=== PATIENT | male | born 1955 | race Hispanic/Latino ===

== ENCOUNTER 2023-05-18 10:15 | Observation (INO) | payer OTHER ==
[2023-05-18 10:52] LABS: Absolute Lymphocytes (CBC) 1.9 K/uL (0.7-4.9); Hematocrit 40.8 % (39.6-49.0); Lymphocytes % 21.5 % (15.3-44.8); MCV 93.4 fL (80-100); MPV 7.4 fL (7.6-11.3); Platelets 244 thou/uL (152-406); RBC Red Blood Cell Count 4.37 M/uL (4.33-5.43)
[2023-05-18 10:59] LABS: Protime INR 0.98
--- NOTE | 2023-05-18 11:10 | RAD REPORT ---
EXAM DESCRIPTION: CT - Ct Stroke Brain Wo Cont - 05/18/2023 10:46 am CLINICAL HISTORY: STROKE ALERT COMPARISON: CT-STONE PROTOCOL dated 02/09/2007; Head angio dated 05/18/2023; Neck Angio dated 3 TECHNIQUE: Noncontrast head CT images were obtained without IV contrast. Multiplanar reformats were generated and reviewed. All CT scans are performed using dose optimization technique as appropriate and may include automated exposure control or mA/KV adjustment according to patient size. FINDINGS: No intracranial hemorrhage, mass, or edema. Midline structures are unremarkable. Normal ventricular caliber for age. Hypodense areas in the bilateral superior cerebellar hemispheres, larger on the right. Minimal mass e ffect upon the fourth ventricle. Punctate focus of near CSF density in the right basal ganglia region , may represent a prominent perivascular space. Jay-white matter differentiation elsewhere is preser soraida, without evidence of acute infarct. No abnormal extra-axial fluid collections. Mastoid air cells and visualized portions of the paranasal sinuses are clear. No acute bony findings. IMPRESSION: Hypodense regions within the superior cerebellar hemispheres bilaterally larger on the r ight, suggestive of subacute ischemia. No evidence of intracranial hemorrhage or herniation. The findings were communicated to Akil Hernadez on 05/18/2023 at 10:44 hours.
--- NOTE | 2023-05-18 11:13 | EDPHYS ---
Physician Documentation [facility] Name: Reece Bender Age: 67 yrs Sex: Male : 1955 Arrival Date: 05/18/2023 Time: 10:15 Bed 15 Private MD: ED Physician Kelley Cat HPI: 05/18 11:05 This 67 yrs old Male presents to ER via Ambulatory with complaints of High sp3 Blood Pressure. 11:05 67-year-old male with history of hypertension and diabetes now presents to the ED with sp3 high blood pressure and slurred speech since yesterday evening. Patient went to sleep and awoke with the same slurred speech also has right upper extremity tingling and numbness that is now resolved. Patient slurred speech symptoms are still occurring. No other symptoms are present. He denies headache, neck pain, trauma, chest pain, shortness of breath, palpitations or irregular heartbeat, rash, abdominal pain, vomiting, diarrhea, substance use, travel history, known sick contacts, fever, URI symptoms, syncope, near syncope, prior CVA, or any other signs or symptoms on ROS at this time.. Historical: - Allergies: 10:25 No Known Allergies; mb9 - Home Meds: 10:25 atorvastatin 20 mg oral tablet [Active]; losartan 50 mg oral tablet [Active]; mb9 - PMHx: 10:25 Hypertensive disorder; Diabetes mellitus; mb9 - PSHx: 10:25 None; mb9 - Immunization history:: Adult Immunizations up to date. - Social history:: Smoking status: Patient denies any tobacco usage or history of. ROS: 11:07 Constitutional: Negative for fever, chills, and weight loss, Eyes: Negative for injury, sp3 pain, redness, and discharge, ENT: Negative for injury, pain, and discharge, Neck: Negative for injury, pain, and swelling, Cardiovascular: Negative for chest pain, palpitations, and edema, Respiratory: Negative for shortness of breath, cough, wheezing, and pleuritic chest pain, Abdomen/GI: Negative for abdominal pain, nausea, vomiting, diarrhea, and constipation, Back: Negative for injury and pain, MS/Extremity: Negative for injury and deformity, Skin: Negative for injury, rash, and discoloration, Psych: Negative for depression, anxiety, suicide ideation, homicidal ideation, and hallucinations, Allergy/Immunology: Negative for hives, rash, and allergies, Endocrine: Negative for neck swelling, polydipsia, polyuria, polyphagia, and marked weight changes, Hematologic/Lymphatic: Negative for swollen nodes, abnormal bleeding, and unusual bruising, 11:07 All other systems are negative, Exam: 11:07 Constitutional: This is a well developed, well nourished patient who is awake, alert, sp3 and in no acute distress. Head/Face: Normocephalic, atraumatic. Eyes: Pupils equal round and reactive to light, extra-ocular motions intact. Lids and lashes normal. Conjunctiva and sclera are non-icteric and not injected. Cornea within normal limits. Periorbital areas with no swelling, redness, or edema. ENT: Nares patent. No nasal discharge, no septal abnormalities noted. External auditory canals are clear. Oropharynx with no redness, swelling, or masses, exudates, or evidence of obstruction, uvula midline. Mucous membranes moist. Neck: Trachea midline, no thyromegaly or masses palpated, and no cervical lymphadenopathy. Supple, full range of motion without nuchal rigidity, or vertebral point tenderness. No Meningismus. Chest/axilla: Normal chest wall appearance and motion. Nontender with no deformity. No lesions are appreciated. Cardiovascular: Regular rate and rhythm with a normal S1 and S2. No gallops, murmurs, or rubs. Normal PMI, no JVD. No pulse deficits. Respiratory: Lungs have equal breath sounds bilaterally, clear to auscultation and percussion. No rales, rhonchi or wheezes noted. No increased work of breathing, no retractions or nasal flaring. Abdomen/GI: Soft, non-tender, with normal bowel sounds. No distension or tympany. No guarding or rebound. No evidence of tenderness throughout. Back: No spinal tenderness. No costovertebral tenderness. Full range of motion. Skin: Warm, dry with normal turgor. Normal color with no rashes, no lesions, and no evidence of cellulitis. MS/ Extremity: Pulses equal, no cyanosis. Neurovascular intact. Full, normal range of motion. Psych: Awake, alert, with orientation to person, place and time. Behavior, mood, and affect are within normal limits. 11:07 Neuro: NIH stroke scale is a 3. Patient still has slurred speech but no other deficits noted., Vital Signs: 10:22 BP 101 / 68; Pulse 63; Resp 18; Temp 98; Pulse Ox 99% on R/A; Weight 83.91 kg; Height 5 mb9 ft. 8 in. ; Pain 10/10; 11:23 BP 102 / 64; Pulse 60; Resp 12; Pulse Ox 97% on R/A; nj1 12:16 BP 110 / 62; Pulse 55; Resp 18; Pulse Ox 98% on R/A; Pain 6/10; nj1 13:15 BP 125 / 74; Pulse 51; Resp 13; Pulse Ox 100% on R/A; Pain 6/10; nj1 14:19 BP 116 / 73; Pulse 61; Resp 16; Pulse Ox 100% on R/A; nj1 15:10 BP 126 / 68; Pulse 55; Resp 14; Pulse Ox 98% on R/A; Pain 2/10; nj1 16:00 BP 116 / 73; Pulse 53; Resp 13; Pulse Ox 98% on R/A; nj1 10:22 Body Mass Index 28.13 (83.91 kg, 172.72 cm) mb9 10:22 Pain Scale: Adult mb9 12:16 Pain Scale: Adult nj1 13:15 Pain Scale: Adult nj1 15:10 Pain Scale: Adult nj1 NIH Stroke Scale Scores: 10:50 NIHSS Score: 3 nj1 MDM: 10:32 Patient medically screened. rt 11:08 Data reviewed: vital signs, nurses notes, lab test result(s), EKG, radiologic studies. sp3 ED course: 67-year-old male with likely CVA. 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 CTA results show no significant obstruction. MRI is pending. Patient is clearly out of the window for acute intervention. Will admit to the hospital, start ASA and consult neurology.. 13:05 ED course: A call was [facility] to [facility] interventional team to go through sp3 the CTA results of the left-sided moderate to severe stenosis of the vertebral artery. They recommended medical therapy only given no flow defects and the right side being intact. This was noted and communicated to both our neurology/inpatient team here as well as the family.. 05/18 10:32 Order name: Basic Metabolic Panel; Complete Time: 11:17 rt 05/18 10:32 Order name: CBC with Diff; Complete Time: 11:05 rt 05/18 10:32 Order name: Hepatic Function; Complete Time: 11:17 rt 05/18 10:32 Order name: High Sensitivity Troponin; Complete Time: 11:17 rt 05/18 10:32 Order name: Magnesium; Complete Time: 11:17 rt 05/18 10:32 Order name: Protime (+inr); Complete Time: 11:05 rt 05/18 10:32 Order name: Ptt, Activated; Complete Time: 11:05 rt 05/18 10:59 Order name: CREATININE WHOLE BLOOD; Complete Time: 11:05 EDMS 05/18 10:32 Order name: CT Head Angio; Complete Time: 11:37 rt 05/18 10:32 Order name: CT Neck Angio; Complete Time: 11:17 rt 05/18 10:32 Order name: CT Stroke Brain w/o Contrast; Complete Time: 11:12 rt 05/18 10:32 Order name: Stroke CXR 1 View; Complete Time: 11:37 rt 05/18 11:01 Order name: MRI Stroke Protocol bd 05/18 14:22 Order name: MRI EDMS 05/18 10:32 Order name: EKG; Complete Time: 10:33 rt 05/18 10:32 Order name: Accucheck; Complete Time: 10:40 rt 05/18 10:32 Order name: Cardiac monitoring; Complete Time: 11:20 rt 05/18 10:32 Order name: EKG - Nurse/Tech; Complete Time: 11:20 rt 05/18 10:32 Order name: IV Saline Lock; Complete Time: 11:09 rt 05/18 10:32 Order name: Labs collected and sent; Complete Time: 11:09 rt 05/18 10:32 Order name: NPO; Complete Time: 11:20 rt 05/18 10:32 Order name: O2 Per Protocol; Complete Time: 11:20 rt 05/18 10:32 Order name: O2 Sat Monitoring; Complete Time: 11:20 rt 05/18 10:32 Order name: Stroke Swallow Screen; Complete Time: 11:20 rt Administered Medications: 11:19 Not Given (Already given at clinic prior to ED arrivall): mg PO once nj1 Disposition Summary: 05/18/23 11:12 Hospitalization Ordered Notes: Hospitalization Status: Inpatient Admission sp3 Provider: Valentino Pruett sp3 Location: Telemetry/MedSurg (Inpatient) sp3 Condition: Stable sp3 Problem: an acute exacerbation sp3 Symptoms: have worsened sp3 Bed/Room Type: Standard sp3 Room Assignment: 414(05/18/23 16:20) bd Diagnosis - CVA sp3 Forms: - Medication Reconciliation Form sp3 - SBAR form sp3 - Leadership Thank You Letter sp3 NIH Stroke Scale - NIH Stroke Score Date: 05/18/2023 Time: 10:50 Total Score = 3 10. Dysarthria (speech clarity - read or repeat words) - 1(Mild to Moderate) 11. Extinction and Inattention (visual/tactile/auditory/spatial/personal) - 0(No abnormality) 1a. Level of Consciousness (LOC) - 0(Alert) 1b. Level of Consciousness (LOC) (Month \T\ Age) - 1(One) 1c. LOC Commands (Open \T\ Closes Eyes/Cosmetic Sales) - 0(Both) 2. Best Gaze (Lateral Gaze Paresis) - 0(Normal) 3. Visual Field Loss - 0(No visual loss) 4. Facial Palsy - 0(Normal) 5a. Left Arm: Motor (10-second hold) - 0(No drift) 5b. Right Arm: Motor (10-second hold) - 0(No drift) 6a. Left Leg: Motor (5-second hold - always test supine) - 0(No drift) 6b. Right Leg: Motor (5-second hold - always test supine) - 0(No drift) 7. Limb Ataxia (finger/nose \T\ heel/plata - test with eyes open) - 0(Absent) 8. Sensory Loss (pinprick arms/legs/face) - 0(Normal) 9. Best Language: Aphasia (description/naming/reading) - 1(Mild to moderate aphasia) Initials: nj1 Signatures: Dispatcher [employer] EDMS April Ardon Lee, RUG CUTTER HELPER-C RUG CUTTER HELPER-Cla1 Kelley Cat MD MD sp3 Zaina Mallory RN RN mb9 Akil Hernadez MD MD rt Micaela Chávez RN nj1 Corrections: (The following items were deleted from the chart) 15:47 11:12 sp3 bd 16:20 15:47 416 bd bd
--- NOTE | 2023-05-18 11:13 | ER ---
Nurse's Notes [facility] Name: Reece Bender Age: 67 yrs Sex: Male : 1955 Arrival Date: 05/18/2023 Time: 10:15 Bed 15 Private MD: Diagnosis: CVA Presentation: 05/18 10:22 Chief complaint: Patient's son or daughter states: "He sent him home from work for mb9 being dizzy, having headache, and slurring his words. He said the slurring of words started last night at 2100. He said his right arm was numb at 0700am this morning". Coronavirus screen: At this time, the client does not indicate any symptoms associated with coronavirus-19. Ebola Screen: No symptoms or risks identified at this time. Initial Sepsis Screen: Does the patient meet any 2 criteria? No. Patient's initial sepsis screen is negative. Does the patient have a suspected source of infection? No. Patient's initial sepsis screen is negative. Risk Assessment: Do you want to hurt yourself or someone else? Patient reports no desire to harm self or others. Onset of symptoms was May 18, 2023. 10:22 Method Of Arrival: Ambulatory mb9 10:22 Acuity: NGUYEN 2 mb9 Triage Assessment: 10:26 General: Appears in no apparent distress. Behavior is calm, cooperative. Neuro: Reports mb9 headache in left frontal area. Neuro: Reports dizziness. Cardiovascular: Denies chest pain. Respiratory: Airway is patent Respiratory effort is even, unlabored, Respiratory pattern is regular, symmetrical. Historical: - Allergies: 10:25 No Known Allergies; mb9 - Home Meds: 10:25 atorvastatin 20 mg oral tablet [Active]; losartan 50 mg oral tablet [Active]; mb9 - PMHx: 10:25 Hypertensive disorder; Diabetes mellitus; mb9 - PSHx: 10:25 None; mb9 - Immunization history:: Adult Immunizations up to date. - Social history:: Smoking status: Patient denies any tobacco usage or history of. Screenin:00 [place] Swallow Protocol Exclusion Criteria: Unable to remain alert for testing: No NPO nj1 for medical/surgical reason by provider order No Head-of-bed restricted <30 degrees Tracheostomy tube present No No thin liquids due to preexisting dysphagia/baseline modified diet thickened liquids No Exclusion Criteria Result: Proceed Brief Cognitive Screen What is your name? Normal, Where are you right now? Normal, What year is it? Normal. Oral Mechanism Examination Facial Symmetry: Normal, Motion: Normal, Lip Closure: Normal, Oral Mechanism Result: Normal. 3 oz Water Swallow Challenge: Pt able to drink all water without stopping, coughing, choking or throat clearing: Yes Result: PASS. 11:00 [facility] ED Fall Risk Assessment (Adult) Score/Fall Risk Level 0 - 2 = Low Risk nj1 Oriented to surroundings, Maintained a safe environment, Hourly rounding (assess needs \\T\\ fall precautionary measures) done. Abuse screen: Denies threats or abuse. Denies injuries from another. Nutritional screening: No deficits noted. Tuberculosis screening: No symptoms or risk factors identified. Assessment: 10:28 Reassessment: pt taken to CT accompanied by nurse. mb9 10:50 General: Appears in no apparent distress. comfortable, Behavior is calm, cooperative, nj1 appropriate for age. 10:50 Pain: Pain: Complains of pain in Head Pain currently is 6 out of 10 on a pain scale. nj1 Quality of pain is described as aching. Neuro: Level of Consciousness is awake, alert, obeys commands, Oriented to person, place, time, situation, Supervisor Finish End are equal bilaterally Moves all extremities. Gait is unable to assess. Speech is slurred, Facial symmetry appears normal, Pupils are PERRLA, Intact. Cardiovascular: Patient's skin is warm and dry. Respiratory: Airway is patent Respiratory effort is even, unlabored. GI: 11:00 Reassessment: Upon clarification with family, patient went to bed last night with a nj1 headache. When he got to work this morning, normally gets there at 5:50am, they noticed slurred speech and inability to write, unsure of onset. 12:13 Reassessment: No changes from previously documented assessment. nj1 13:10 Reassessment: Patient appears in no apparent distress at this time. No changes from nj1 previously documented assessment. Patient and/or family updated on plan of care and expected duration. Pain level reassessed. Patient is alert, oriented x 3, equal unlabored respirations, skin warm/dry/pink. 13:10 Neuro: Speech is slurred. nj1 14:20 Reassessment: Patient appears in no apparent distress at this time. No changes from nj1 previously documented assessment. Patient and/or family updated on plan of care and expected duration. Pain level reassessed. Patient is alert, oriented x 3, equal unlabored respirations, skin warm/dry/pink. Neuro: Speech is slurred. 15:10 Reassessment: Patient appears in no apparent distress at this time. No changes from [facility] previously documented assessment. Patient and/or family updated on plan of care and expected duration. Pain level reassessed. Patient is alert, oriented x 3, equal unlabored respirations, skin warm/dry/pink. 15:10 Neuro: Speech is slurred. nj1 15:55 Reassessment: Unsuccessful attempt to call report. Nurse will call back for report. dc1 16:00 Reassessment: Patient appears in no apparent distress at this time. No changes from [facility] previously documented assessment. Patient and/or family updated on plan of care and expected duration. Pain level reassessed. Patient is alert, oriented x 3, equal unlabored respirations, skin warm/dry/pink. Vital Signs: 10:22 BP 101 / 68; Pulse 63; Resp 18; Temp 98; Pulse Ox 99% on R/A; Weight 83.91 kg; Height 5 mb9 ft. 8 in. ; Pain 10/10; 11:23 BP 102 / 64; Pulse 60; Resp 12; Pulse Ox 97% on R/A; nj1 12:16 BP 110 / 62; Pulse 55; Resp 18; Pulse Ox 98% on R/A; Pain 6/10; nj1 13:15 BP 125 / 74; Pulse 51; Resp 13; Pulse Ox 100% on R/A; Pain 6/10; nj1 14:19 BP 116 / 73; Pulse 61; Resp 16; Pulse Ox 100% on R/A; nj1 15:10 BP 126 / 68; Pulse 55; Resp 14; Pulse Ox 98% on R/A; Pain 2/10; nj1 16:00 BP 116 / 73; Pulse 53; Resp 13; Pulse Ox 98% on R/A; nj1 10:22 Body Mass Index 28.13 (83.91 kg, 172.72 cm) mb9 10:22 Pain Scale: Adult mb9 12:16 Pain Scale: Adult nj1 13:15 Pain Scale: Adult nj1 15:10 Pain Scale: Adult nj1 NIH Stroke Scale Scores: 10:50 NIHSS Score: 3 nj1 ED Course: 10:19 Patient arrived in ED. mg5 10:22 Kelley Cat MD is Attending Physician. sp3 10:24 Triage completed. mb9 10:26 Arm band placed on. mb9 10:39 Inserted saline lock: 22 gauge in left antecubital area, using aseptic technique. Blood mb9 collected. 10:40 Micaela Chávez, RN is Primary Nurse. nj1 10:40 Basic Metabolic Panel Sent. mb9 10:40 CBC with Diff Sent. mb9 10:40 Hepatic Function Sent. mb9 10:41 High Sensitivity Troponin Sent. mb9 10:41 Magnesium Sent. mb9 10:41 Protime (+inr) Sent. mb9 10:41 Ptt, Activated Sent. mb9 10:47 CT Head Angio In Process Unspecified. EDMS 10:48 CT Neck Angio In Process Unspecified. EDMS 10:48 CT Stroke Brain w/o Contrast In Process Unspecified. EDMS 10:50 Patient has correct armband on for positive identification. Bed in low position. Call nj1 light in reach. Adult w/ patient. 10:50 Provided Education on: call light, fall precautions. nj1 11:11 Valentino Pruett MD is Hospitalizing Provider. sp3 11:14 Stroke CXR 1 View In Process Unspecified. EDMS 13:02 initiated transfer to [facility]. bd 13:05 transfer cancelled by provider, pt will be staying at [facility]. bd 16:11 No provider procedures requiring assistance completed. Patient admitted, IV remains in nj1 place. Administered Medications: 11:19 Not Given (Already given at clinic prior to ED arrivall): [id number] mg PO once nj1 Medication: 16:12 VIS not applicable for this client. nj1 Outcome: 11:12 Decision to Hospitalize by Provider. sp3 16:03 Admitted to Tele accompanied by tech, family with patient, via stretcher, room 416, nj Report called to Xochilt VEE 16:03 Condition: stable 16:03 Instructed on the need for admit, 16:35 Patient left the ED. nj NIH Stroke Scale - NIH Stroke Score Date: 05/18/2023 Time: 10:50 Total Score = 3 10. Dysarthria (speech clarity - read or repeat words) - 1(Mild to Moderate) 11. Extinction and Inattention (visual/tactile/auditory/spatial/personal) - 0(No abnormality) 1a. Level of Consciousness (LOC) - 0(Alert) 1b. Level of Consciousness (LOC) (Month \\T\\ Age) - 1(One) 1c. LOC Commands (Open \\T\\ Closes Eyes/Reimbursement Spec) - 0(Both) 2. Best Gaze (Lateral Gaze Paresis) - 0(Normal) 3. Visual Field Loss - 0(No visual loss) 4. Facial Palsy - 0(Normal) 5a. Left Arm: Motor (10-second hold) - 0(No drift) 5b. Right Arm: Motor (10-second hold) - 0(No drift) 6a. Left Leg: Motor (5-second hold - always test supine) - 0(No drift) 6b. Right Leg: Motor (5-second hold - always test supine) - 0(No drift) 7. Limb Ataxia (finger/nose \\T\\ heel/plata - test with eyes open) - 0(Absent) 8. Sensory Loss (pinprick arms/legs/face) - 0(Normal) 9. Best Language: Aphasia (description/naming/reading) - 1(Mild to moderate aphasia) Initials: [facility] Signatures: Dispatcher [employer] EDMS April Ardon Setul, MD MD sp3 Zaina Mallory RN RN [facility] Micaela Chávez RN RN [facility] Maxine Antonio 5 Corrections: (The following items were deleted from the chart) 10:28 10:22 Chief complaint: Patient's son or daughter states: "He sent him home from [facility] work for being dizzy, having headache, and slurring his words. He said the slurring of words started last night at 2100." [facility] 10:34 10:22 Acuity: NGUYEN 3 [place] [address] 12:15 10:50 Pain: [place] [address] 15:57 15:10 BP 126 / 68; Pulse 55bpm; Resp 14bpm; Pulse Ox 98% RA; [place] [address] 16:10 14:19 Pulse 61bpm; Resp 16bpm; Pulse Ox 100% RA; [place] [address]
[2023-05-18 11:14] LABS: Albumin 3.4 g/dL (3.4-5.0); Bilirubin Direct 0.2 mg/dL (0-0.2); Bilirubin Indirect, Calculated 0.3 mg/dL (0.2-0.8); Bilirubin Total 0.5 mg/dL (0.2-1.0); Magnesium 1.4 mg/dL (1.6-2.4); Potassium 4.1 mEq/L (3.5-5.1); Protein, Total 6.8 g/dL (6.4-8.2)
--- NOTE | 2023-05-18 11:14 | RAD REPORT ---
EXAM DESCRIPTION: CT - Neck Angio - 05/18/2023 10:46 am CLINICAL HISTORY: cva COMPARISON: Head angio dated 05/18/2023; Ct Stroke Brain Wo Cont dated 05/18/2023 TECHNIQUE: Axial CT angiography images of the head was performed with multiplanar and maximum intens ity projection reconstructions. Images performed following intravenous administration of 100mL Isovue 370. All CT scans are performed using dose optimization technique as appropriate and may include automated exposure control or mA/KV adjustment according to patient size. Quantification of carotid stenosis, if any, is performed according to NASCET criteria. FINDINGS: A left aortic arch is identified with normal three vessel configuration of the great vesse ls. Dense venous contrast limits evaluation of the subclavian vein and origin of the left vertebral a rtery, although suspected moderate to severe stenosis is noted at the origin of the left vertebral ar eugenio, allowing for this limitation No significant flow abnormality is seen of the common carotid bilaterally. No significant stenosis is identified involving the cervical segments of both internal carotid arteri es. Normal flow is seen within the remainder of both vertebral arteries. Right vertebral artery is domina nt. IMPRESSION: Suspected moderate to severe stenosis at the origin of the left vertebral artery, althou gh dense venous contrast results in artifact which somewhat limits evaluation at that level. No other significant flow abnormality of the neck vessels is identified. CAROTID STENOSIS REFERENCE USING NASCET CRITERIA: % ICA stenosis = (1 - narrowest ICA diameter/diameter of distal cervical ICA) x 100. Mild - <50% stenosis. Moderate - 50-69% stenosis. Severe - 70-94% stenosis. Near occlusion - 95-99% stenosis. Occluded - 100% stenosis.
--- NOTE | 2023-05-18 11:16 | RAD REPORT ---
EXAM DESCRIPTION: CT - Head angio - 05/18/2023 10:46 am CLINICAL HISTORY: STROKE ALERT COMPARISON: Ct Stroke Brain Wo Cont dated 05/18/2023; Neck Angio dated 05/18/2023 TECHNIQUE: Axial CT angiography images of the head was performed with multiplanar and maximum intens ity projection reconstructions. Images performed following intravenous administration of 100mL Isovue 370. All CT scans are performed using dose optimization technique as appropriate and may include automated exposure control or mA/KV adjustment according to patient size. FINDINGS: No evidence of large vessel occlusion. No evidence of aneurysm or dissection flap is detec bayron. No flow-limiting stenosis or vascular malformation identified. Small calcific focus in the extr a-axial space adjacent to the left posterior clinoid may represent a small meningioma without signifi cant mass effect. Antegrade flow is seen in the vertebral arteries. The right vertebral artery is dominant. Mild multif ocal irregularity along the distal left vertebral artery. Persistent origin configuration of t he right posterior [id number] vessels on the right. The visualized dural venous sinuses are grossly patent. IMPRESSION: No evidence of large vessel occlusion or flow-limiting stenosis. Mild multifocal luminal irregularity of the distal non dominant left vertebral artery.
--- OUTSIDE RECORDS SUMMARY | 2023-05-18 11:19 | XMS REPORT | Continuity of Care Document ---
:1955 Author Organization [facility] t Address [address] [place] [address] [address] [place] [address] Care Team Providers Name Role Phone PCP, PATIENT DOES NOT HAVE A Primary Care Physician UnavailEUN Acosta Attending Clinician Unavailable Carroll Weems Attending Clinician Eun Meredith MD Attending Clinician CARROLL CARDENAS Admitting Clinician Unavailable Payers Payer Name Policy Type Policy Number Effective Date Expiration Date S Yapmo [id number] 2021 NON-CONTRACT 00:00:00 GENERIC Problems Condition Condition Condition Status Onset Resolution Last Treating Co mments Source Name Details Category Date Date Treatment Clinician Date SBO (small SBO (small Disease Active U nivers bowel bowel 5-13 [place] n[place] 00 Medical Branch Encounter Encounter Disease Active Uni vers for for 5-12 ity of nasogastri [place] c ([place] 00 Medical tube tube Branch placement placement Allergies, Adverse Reactions, Alerts Allergy Allergy Status Severity Reaction(s) Onset Inactive Treating Comm ents Source Name Type Date Date Clinician NO KNOWN Drug Active Univers ALLERGIE Class ity of S [place] [facility] Social History Social Habit Start Date Stop Date Quantity Comments Source Exposure to 2021-09-23 2021-10-03 Not sure [facility] SARS-CoV-2 (event) 00:00:00 12:49:00 Medica l Branch Sex Ass[birth year] At [birth year] [facility] 00:00:00 00:00:00 Medical Branch Smoking Status Start Date Stop Date Source Never smoker [facility] Medications Ordered Filled Start Stop Current Ordering Indication Dosage Frequency Signature Comments Components Source Medication Medication Date Date Medication? Clinician (SIG) Name Name TAKE 1 TO 2 2021-06 No TABLETS BY 1-15 MOUTH EVERY 00:00: 6 HOURS 00 NEEDED FOR NAUSEA Dose 2021-0 No Unknown 4-25 00:00: 00 Dose 2021-0 No Unknown 4-25 00:00: 00 Dose 2021-0 No Unknown 4-25 00:00: 00 Dose 2021-0 No Unknown 4-25 00:00: 00 Dose 2021-0 No Unknown 4-25 00:00: 00 Dose 2021-0 No Unknown 4-25 00:00: 00 Dose 2021-0 No Unknown 4-25 00:00: 00 Dose 2021-0 No Unknown 4-25 00:00: 00 Dose 2021-0 No Unknown 4-25 00:00: 00 Dose 2021-0 No Unknown 4-25 00:00: 00 Dose 2021-0 No Unknown 4-25 00:00: 00 Dose 2021-0 No Unknown 4-25 00:00: 00 cloNIDine 2021-0 2021- No .2mg 0.2 mg, Univ ers (CATAPRES) 10-03 Oral, ity of tablet 0.2 21:30: 20:29 ONCE, 1 [place] mg 00 :00 dose, On Medical Fri Branch 10/03/21 at 1630, STAT ondansetron 0 2021- No 8mg 8 mg, Slow Univers (ZOFRAN 10-03 IV Push, ity of (PF)) 20:00: 19:34 ONCE, 1 [place] injection 8 00 :00 dose, On Medi elin mg Fri Branch 10/03/21 at 1500, MADDIE morpHINE 0 2021- No 4mg 4 mg, Slow Un ori injection 4 10-03 IV Push, ity of mg 20:00: 19:35 ONCE, 1 [place] 00 :00 dose, On Medical Fri Branch 10/03/21 at 1500, STAT aspirin 2-0 2021- No 325mg 325 mg, Unive rs tablet 325 10-03 Oral, ity of mg 19:30: 18:30 ONCE, 1 [place] 00 :00 dose, On Medical Fri Branch 10/03/21 at 1430, STAT Dose 2021-0 No Unknown 4- 00:00: 00 Dose 2-0 No Unknown 4- 00:00: 00 Dose 2-0 No Unknown 4- 00:00: 00 Dose 2-0 No Unknown 4- 00:00: 00 Dose 2-0 No Unknown 4-22 00:00: 00 Dose 2021-0 No Unknown 4-22 00:00: 00 Dose 2021-0 No Unknown 4-22 00:00: 00 Dose 2-0 No Unknown 4-22 00:00: 00 Dose 2-0 No Unknown 4-22 00:00: 00 Dose 2-0 No Unknown 4-22 00:00: 00 Dose 2-0 No Unknown 4-22 00:00: 00 Dose 2-0 No Unknown 4-22 00:00: 00 Dose 2-0 No Unknown 4-22 00:00: 00 Dose 2-0 No Unknown 4-22 00:00: 00 Dose 2-0 No Unknown 4-22 00:00: 00 Dose 2-0 No Unknown 4-22 00:00: 00 Dose 2-0 No Unknown 4-22 00:00: 00 Dose 2-0 No Unknown 4-22 00:00: 00 Dose 2-0 No Unknown 4-22 00:00: 00 Dose 2-0 No Unknown 4-22 00:00: 00 Dose 2-0 No Unknown 4-22 00:00: 00 Dose 2-0 No Unknown 4-22 00:00: 00 Dose 2-0 No Unknown 4-22 00:00: 00 Dose 2-0 No Unknown 4-22 00:00: 00 Dose 2-0 No Unknown 4-22 00:00: 00 Dose 2-0 No Unknown 4-22 00:00: 00 Dose 2-0 No Unknown 4-22 00:00: 00 Dose 2-0 No Unknown 4-22 00:00: 00 Dose 2022-0 No Unknown 4-22 00:00: 00 Dose 2022-0 No Unknown 4-22 00:00: 00 Dose 2022-0 No Unknown 4-22 00:00: 00 Dose 2022-0 No Unknown 4-22 00:00: 00 Dose 2022-0 No Unknown 4-22 00:00: 00 Dose 2022-0 No Unknown 4-22 00:00: 00 Dose 2022-0 No Unknown 4-22 00:00: 00 Dose 2022-0 No Unknown 4-22 00:00: 00 Dose 2022-0 No Unknown 4-22 00:00: 00 Dose 2022-0 No Unknown 4-22 00:00: 00 Dose 2022-0 No Unknown 4-22 00:00: 00 Dose 2022-0 No Unknown 4-22 00:00: 00 Dose 2022-0 No Unknown 4-22 00:00: 00 Dose 2022-0 No Unknown 4-22 00:00: 00 Dose 2022-0 No Unknown 4-22 00:00: 00 Dose 2022-0 No Unknown 4-22 00:00: 00 Dose 2022-0 No Unknown 4-22 00:00: 00 Dose 2022-0 No Unknown 4-22 00:00: 00 Dose 2022-0 No Unknown 4-22 00:00: 00 Dose 2022-0 No Unknown 4-22 00:00: 00 Dose 2022-0 No Unknown 4-22 00:00: 00 Dose 2022-0 No Unknown 4-22 00:00: 00 Dose 2022-0 No Unknown 4-22 00:00: 00 Dose 2022-0 No Unknown 4-22 00:00: 00 Dose 2022-0 No Unknown 4-22 00:00: 00 Dose 2022-0 No Unknown 4-22 00:00: 00 Dose 2022-0 No Unknown 4-22 00:00: 00 Dose 2022-0 No Unknown 4-22 00:00: 00 Dose 2022-0 No Unknown 4-22 00:00: 00 Dose 2022-0 No Unknown 4-22 00:00: 00 Dose 2022-0 No Unknown 4-22 00:00: 00 Dose 2022-0 No Unknown 4-22 00:00: 00 Dose 2022-0 No Unknown 4-22 00:00: 00 Dose 2022-0 No Unknown 4-22 00:00: 00 Dose 2021-0 No Unknown 4-22 00:00: 00 Dose 2021-0 No Unknown 4-22 00:00: 00 Dose 2021-0 No Unknown 4-22 00:00: 00 Dose 2021-0 No Unknown 4-22 00:00: 00 traMADoL 50 2021-0 Yes [id number] 50mg Take 1 Univ ers mg tablet 4-22 tablet by ity o f 00:00: mouth [place] 00 every 6 Medical (six) Branch hours as needed (pain). Indication s: acute pain ondansetron 2021-0 Yes [id number] 1 or 2 Univers 4 mg tablet 4-22 tablets ity o f 00:00: every 6 [place] 00 hours as Medical needed for Branch nausea lisinopriL 2021-0 Yes [id number] 10mg Take 1 Univers 10 mg 4-22 tablet by ity of tablet 00:00: mouth at [place] 00 bedtime. Medical Branch metFORMIN 0 Yes [id number] 500mg Take 1 Univers 500 mg 4-22 tablet by ity of tablet 00:00: mouth 2 00 (two) Medical times Branch daily. lisinopril 2020-0 No 1mg 2.5 mg 8-26 tablet 00:00: 00 metformin 2020-0 No 1mg 1,000 mg 8-26 tablet 00:00: 00 atorvastati 2020-0 No 1mg n 80 mg 8-26 tablet 00:00: 00 lisinopril 2020-0 No 1mg 2.5 mg 8-26 tablet 00:00: 00 metformin 2020-0 No 1mg 1,000 mg 8-26 tablet 00:00: 00 atorvastati 2020-0 No 1mg n 80 mg 8-26 tablet 00:00: 00 metformin 2020-0 No 1mg 850 mg 8-23 tablet 00:00: 00 Bactrim DS 2020-0 No 1mg 800 mg-160 8-23 mg tablet 00:00: 00 metformin 2020-0 No 1mg 850 mg 8-23 tablet 00:00: 00 Dose 2020-0 No Unknown 8-23 00:00: 00 metformin 2019-0 No 1mg 850 mg 4-13 tablet 00:00: 00 metformin 2019-0 No 1mg 850 mg 4-13 tablet 00:00: 00 METFORMIN 2015-0 Yes Take by Unive rs HCL 5-15 mouth. ity of (METFORMIN 14:58: [place] ORAL) 09 Medical [place] Vital Signs Vital Name Observation Time Observation Value Comments Source Systolic blood 2021-10-03 20:15:06 200 mm[Hg] Univer sity of pressure [facility] Diastolic blood 2021-10-03 20:15:06 95 mm[Hg] [facility] Heart rate 2021-10-03 20:15:06 70 /min [facility] Respiratory rate 2021-10-03 20:15:06 16 /min [facility] Oxygen saturation in 2021-10-03 20:15:06 96 /min [facility] Arterial blood by [facility] [place] Pulse oximetry Branch Body temperature 2021-10-03 17:52:00 37.17 Rina [facility] Body height 2021-10-03 17:52:00 167 cm [facility] Body weight 2021-10-03 17:52:00 83.915 kg [facility] BMI 2021-10-03 17:52:00 30.09 kg/m2 [facility] BP Systolic 2022-04-29 09:38:00 164 mm[Hg] BP Diastolic 2022-04-29 09:38:00 82 mm[Hg] Weight Measured 2022-04-29 09:38:00 192.20 pounds Height Measured 2022-04-29 09:38:00 62.11 inches Body Temperature 2022-04-29 09:38:00 98.20 degrees Heart Rate 2022-04-29 09:38:00 68.00 /min Respiratory Rate 2022-04-29 09:38:00 20.00 /min BP Systolic 2021-10-03 11:47:00 200 mm[Hg] BP Diastolic 2021-10-03 11:47:00 93 mm[Hg] Weight Measured 2021-10-03 11:47:00 191.60 pounds Height Measured 2021-10-03 11:47:00 68.11 inches Body Temperature 2021-10-03 11:47:00 98.30 degrees Heart Rate 2021-10-03 11:47:00 79.00 /min Respiratory Rate 2021-10-03 11:47:00 16.00 /min BP Systolic 2021-02-03 10:32:00 146 mm[Hg] BP Diastolic 2021-02-03 10:32:00 87 mm[Hg] Weight Measured 2021-02-03 10:32:00 187.40 pounds Height Measured 2021-02-03 10:32:00 68.11 inches Body Temperature 2021-02-03 10:32:00 98.30 degrees Heart Rate 2021-02-03 10:32:00 70.00 /min Respiratory Rate 2021-02-03 10:32:00 17.00 /min Procedures Procedure Date / Time Performing Clinician Source Performed XR CHEST 2 VW 2021-10-03 18:37:00 Carroll Cardenas [facility] LIPASE 2021-10-03 18:28:00 Carroll Cardenas [facility] TROPONIN I 2021-10-03 18:28:00 Carroll Cardenas [facility] COMP. METABOLIC PANEL 2021-10-03 18:28:00 Carroll Cardenas [facility] (95[facility] CBC WITH DIFF 2021-10-03 18:28:00 Carroll Cardenas [facility] PROTHROMBIN TIME / INR 2021-10-03 18:28:00 Carroll Cardenas [facility] ACTIVATED PARTIAL 2021-10-03 18:28:00 Carroll Cardenas [facility] Plan of Care Planned Activity Planned Date Details Comments Source Goal Plan of Care Note [code = 10046-2] Goal Plan of Care Note [code = 66888-5] Goal Plan of Care Note [code = 40071-1] Goal Plan of Care Note [code = 27605-4] Goal Plan of Care Note [code = 39704-4] Goal Plan of Care Note [code = 04305-4] Goal Plan of Care Note [code = 91236-6] Goal Plan of Care Note [code = 63576-3] Goal Plan of Care Note [code = 27357-5] Goal Plan of Care Note [code = 06435-3] Goal Plan of Care Note [code = 18426-7] Goal Plan of Care Note [code = 79941-4] Goal Plan of Care Note [code = 02820-2] Goal Plan of Care Note [code = 55772-6] Goal Plan of Care Note [code = 70720-5] Goal Plan of Care Note [code = 28350-0] Goal Plan of Care Note [code = 58873-6] Goal Plan of Care Note [code = 50233-5] Goal Plan of Care Note [code = 68445-2] Goal Plan of Care Note [code = 98826-2] Goal Plan of Care Note [code = 13086-7] Goal Plan of Care Note [code = 36975-0] Goal Plan of Care Note [code = 72785-0] Goal Plan of Care Note [code = 60164-8] Goal Plan of Care Note [code = 25200-6] Goal Plan of Care Note [code = 19071-5] Goal Plan of Care Note [code = 24279-3] Goal Plan of Care Note [code = 51112-6] Encounters Start End Encounter Admission Attending Care Care Encounter Source Date/Time Date/Time Type Type Clinicians Facility Department ID 2023-05-18 2023-05-18 Outpatient SFA SFA [id number] [place] 08:35:48 08:35:48 1205 [facility] 2023-04-06 2023-04-06 Outpatient SFA SFA [id number] [id number] [place] 16:02:51 16:02:51 [facility] 2023-02-25 2023-02-25 Outpatient SFA SFA [id number] [place]y 17:04:26 17:04:26 0914 [facility] 2023-01-21 2023-01-21 Outpatient SFA SFA [id number] 023 [place]y 16:45:10 16:45:10 0810 [facility] 2023-01-12 2023-01-12 Outpatient SFA SFA [id number] [place]y 13:25:17 13:25:17 0801 [facility] 2023-01-11 2023-01-11 Outpatient SFA SFA [id number] [place]y 08:06:24 08:06:24 0731 [facility] 2023-01-04 2023-01-04 Outpatient SFA SFA [id number] [id number] Endy 16:42:05 16:42:05 0724 [facility] 2022-12-22 2022-12-22 Outpatient SFA SFA [id number] [id number] [place]y 11:40:22 11:40:22 0711 [facility] 2022-12-21 2022-12-21 Outpatient SFA SFA [id number] Endy 16:57:19 16:57:19 0710 [facility] 2022-08-03 2022-08-03 Outpatient SFA SFA [id number] Endy 08:09:33 08:09:33 0220 [facility] 2022-05-20 2022-05-20 Outpatient SFA SFA [id number] [id number] Endy 13:39:37 13:39:37 1207 [facility] 2022-05-01 2022-05-01 Outpatient SFA SFA [id number] 022 Endy 16:38:04 16:38:04 [facility]8 [facility] 2022-04-29 2022-04-29 Outpatient SFA SFA [id number] 022 Endy 09:21:36 09:21:36 1116 [facility] 2022-04-29 2022-04-29 Outpatient [id number]-[id number] 00:00:00 00:00:00 Visit [id number]-[id number] 2022-01-09 2022-01-09 Outpatient [id number] 00:00:00 00:00:00 Visit [id number] 2021-10-03 2021-10-03 Emergency X CHRISTINA MEREDITH ERT [id number] Univers 13:00:00 15:54:00 EUN steen [facility] 2021-10-03 2021-10-03 Emergency Carroll Cardenas [facility] [id number] .[id number] Univers 13:00:00 15:54:00 Eun Meredith [place] [id number] [facility] [id number] [facility] [id number] Medi elin 084 Branch Results Test Description Test Time Test Comments Results Result Comments Source HEMOGLOBIN A1c 2022-08-04 02:54:03 Test Item Value Reference Range Interpretation Comme nts HEMOGLOBIN A1c (test 8.6 % 4.2-5.6 H [employer] GUIDELINES FOR code = 53355) HGB A1C: PREDI ABETES/INCREASED RISK . . . . . . . 5.7-6.4% DI AGNOSIS OF DIABETES . . . . . . . . . >=6.5% WITH CONFIRMATION OR APPROPRIATE SYM PTOMS NOTE: ASSAY MAY BE AFFECTED BY HEM OGLOBINOPATHIES (SICKLE CELL ANEMIA, S-C DIS EASE, OTHERS) OR ARTIFICIALLY LOWERED BY DECR EASED RED CELL SURVIVAL (HEMOLYTIC ANEM IAS, BLOOD LOSS, ETC.). CONSIDER ALTERN ATE TESTING OR LABORATORY CONSULTATION. * [facility] has important pathology staff changes e ffective 08/12/2022. New pathology staff will provide uninterrupted, excellent patie nt care and clinical consultation. S ee URL: [email or web address] UNLESS OTHERWISE INDIC ATED, ALL TESTING PERFORMED AT [employer]. [address] [place] [address] CLIA: [id number], CAP: [id number] TROPONIN [id number] 19:01:43 Test Item Value Reference Interpretation Comments Range TROPONIN I (test 0.004 ng/mL See_Comment [Automated code = 2922533058) message] The system which generated this result transmitted reference range : <=0.034. The reference range was not used to interpret this result as normal/abnormal . KATY (test code = Reference (Normal) KATY) Range (defined by the 99th percentile reference limit): <= 0.034 ng/mL Note: Cardiac troponin begins to rise 3-4 hours after the onset of ischemia. Repeat in 4-6 hours if the sample was drawn within 3-4 hours of the onset of the symptom and found normal. Diagnosis of myocardial injury is made with acute changes in cTn concentrations with at least one serial sample above the 99th percentile upper reference limit (URL), taken together with the patient's clinical presentation. Biotin has been reported to cause a negative bias, interpret results relative to patient's use of biotin. Lab Interpretation Normal (test code = 07876-6) [facility] 18:50:38 Test Item Value Reference Range Interpretation Comments APTT Patient (test See_Comment [Automat ed code = 3173-2) message] The system which generated this result transmitted reference range : 23 - 38 Seconds . The reference range was not used to interpr et this result as normal/abnormal . KATY (test code = KATY) The [facility] patient population mean normal value for aPTT is 30 seconds. Lab Interpretation Normal (test code = 64777-6) [facility]. METABOLIC PANEL (33573)2021-10-03 18:50:18 Test Item Value Reference Range Interpretation Comments NA (test code = 137 mmol/L 135-145 5675180181) K (test code = 4.5 mmol/L 3.5-5.0 3878703098) CL (test code = 102 mmol/L 98-108 5613545415) CO2 TOTAL (test code = 26 mmol/L 23-31 1209592271) AGAP (test code = 2-16 9492062123) BUN (test code = 16 mg/dL 7-23 7942236942) GLUCOSE (test code = 263 mg/dL 70-110 H 4173950778) CREATININE (test code = 0.80 mg/dL 0.60-1.25 1746641647) TOTAL BILI (test code = 0.9 mg/dL 0.1-1.1 6883989861) CALCIUM (test code = 8.9 mg/dL 8.6-10.6 5724141808) T PROTEIN (test code = 7.0 g/dL 6.3-8.2 0519586122) ALBUMIN (test code = 4.5 g/dL 3.5-5.0 7513920555) ALK PHOS (test code = 93 U/L 34-122 8162025450) ALTv (test code = 21 U/L 5-50 1742-6) AST(SGOT) (test code = 23 U/L 13-40 3390614718) eGFR (test code = mL/min/1.73m2 4891134277) KATY (test code = KATY) Association of Glomerular Filtration Rate (GFR) and Staging of Kidney Disease* + --+ --+ ------+| GFR (mL/min/1.73 m2) ?| With Kidney Damage ?| ?Without Kidney Damage+ --------+ --------+ +| ?>90 ?| ?Stage one ?| ? Normal ?+ ---+ ---+ -------+| ?60-89 ?| ?Stage two ?| ? Decreased GFR ? + --+ --+ ------+| ?30-59 ?| ?Stage three ?| ? Stage three ? + --+ --+ ------+| ?15-29 ?| ?Stage four ? | ? Stage four ?+ ---+ ---+ -------+| ?<15 (or dialysis) ? ?| ?Stage five ? | ? Stage five ?+ ---+ ---+ -------+ *Each stage assumes the associated GFR level has been in effect for at least three months. ?Stages 1 to 5, with or without kidney disease, indicate chronic kidney disease. Notes: Determination of stages one and two (with eGFR >59mL/min/1.73 m2) requires estimation of kidney damage for at least three months as defined by structural or functional abnormalities of the kidney, manifested by either:Pathological abnormalities or Markers of kidney damage (including abnormalities in the composition of the blood or urine or abnormalities in imaging tests). Lab Interpretation Abnormal (test code = 77799-5) [facility], [id number] 18:49:58 Test Item Value Reference Range Interpretation Comments LIPASE (test code = 6800454098) 644 U/L 0-220 H Lab Interpretation (test code = Abnormal 60954-3) [facility] / [id number] 18:48:41 Test Item Value Reference Range Interpretation Comments PROTIME PATIENT (test See_Comment [Auto mated message] code = 5964-2) The system [employer] generated this result transmitted ref erence range: 12.0 - 1 4.7 Seconds. The re ference range was not u sed to interpret this result as normal/abnor mal. INR (test code = 6301-6) Nor mal INR <1.1; Warfarin Therap eutic range 2.0 to 3. 0 or 2.5 to 3.5, dep ending upon the indica tions. Lab Interpretation (test Normal code = 81019-4) [facility] WITH [id number] 18:39:39 Test Item Value Reference Range Interpretation Comments WBC (test code = See_Comment [Automated 6690-2) message] The sy stem which generated this result transmitted reference range : 4.20 - 10.70 10*3/?L. The reference range was not used to interpret this result as normal/abnormal . RBC (test code = See_Comment [Automated 789-8) message] The sy stem which generated this result transmitted reference range : 4.26 - 5.52 10*6/?L. The reference range was not used to interpret this result as normal/abnormal . HGB (test code = 16.0 g/dL 12.2-16.4 718-7) HCT (test code = 45.0 % 38.4-49.3 4544-3) MCV (test code = 90.4 fL 81.7-95.6 787-2) MCH (test code = 32.1 pg 26.1-32.7 785-6) MCHC (test code = 35.6 g/dL 31.2-35.0 H 786-4) RDW-SD (test code = 39.9 fL 38.5-51.6 36444-2) RDW-CV (test code = 12.2 % 12.1-15.4 788-0) PLT (test code = See_Comment [Automated 777-3) message] The sy stem which generated this result transmitted reference range : 150 - 328 10*3/ ?L. The reference r rahul was not used to interpret this result as normal/abnormal . MPV (test code = 9.4 fL 9.8-13.0 L 33805-6) NRBC/100 WBC (test See_Comment [Automat ed code = 8306763549) message] The system which generated this result transmitted reference range : 0.0 - 10.0 /100 WBCs. The refer ence range was not u sed to interpret th is result as normal/abnormal . NRBC x10^3 (test code <0.01 See_Comment [Auto mated = 4903091842) message] The s ystem which generated this result transmitted reference range : 10*3/?L. The reference range was not used to interpret this result as normal/abnormal . GRAN MAT (NEUT) % 68.5 % (test code = 770-8) IMM GRAN % (test code 0.50 % = 6490803129) LYMPH % (test code = 21.1 % 736-9) MONO % (test code = 8.8 % 5905-5) EOS % (test code = 0.5 % 713-8) BASO % (test code = 0.6 % 706-2) GRAN MAT x10^3(ANC) 5.69 10*3/uL 1.99-6.95 (test code = 2855976442) IMM GRAN x10^3 (test 0.04 10*3/uL 0.00-0.06 code = 6384334262) LYMPH x10^3 (test code 1.75 10*3/uL 1.09-3.23 = 731-0) MONO x10^3 (test code 0.73 10*3/uL 0.36-1.02 = 742-7) EOS x10^3 (test code = 0.04 10*3/uL 0.06-0.53 L 711-2) BASO x10^3 (test code 0.05 10*3/uL 0.01-0.09 = 704-7) Lab Interpretation Abnormal (test code = 28391-5) [facility] W/AUTO [id number] 00:00:00 Test Item Value Reference Range Interpretation Comments WBC (test code = 1001) 6.6 K/UL RBC (test code = 1002) 5.29 M/UL HEMOGLOBIN (test code = 1003) 17.5 G/DL HEMATOCRIT (test code = 1004) 49.4 % MCV (test code = 1005) 93.4 fL MCH (test code = 1006) 33.1 PG MCHC (test code = 1007) 35.4 G/DL RDW (test code = 1038) 12.8 % NEUTROPHILS (test code = 1008) 62.9 % LYMPHOCYTES (test code = 1010) 24.7 % MONOCYTES (test code = 1011) 9.9 % EOSINOPHILS (test code = 1012) 1.2 % BASOPHILS (test code = 1013) 0.5 % IMMATURE GRANULOCYTES (test 0.8 % code = 1036) NUCLEATED RBCS (test code = 0.0 /100WBC'S 1065) PLATELET COUNT (test code = 254 K/UL 1015) ABSOLUTE NEUTROPHILS (test code 4.18 K/UL = 1066) ABSOLUTE LYMPHOCYTES (test code 1.64 K/UL = 1067) ABSOLUTE MONOCYTES (test code = 0.66 K/UL 1068) ABSOLUTE EOSINOPHILS (test code 0.08 K/UL = 1040) ABSOLUTE BASOPHILS (test code = 0.03 K/UL 1069) ABS IMMATURE GRANULOCYTES (test 0.05 K/UL code = 1020) ABS NUCLEATED RBCS (test code = 0.02 K/UL 06167) CBC W/AUTO [id number] 00:00:00 Test Item Value Reference Range Interpretation Comments WBC (test code = 1001) 6.6 K/UL RBC (test code = 1002) 5.29 M/UL HEMOGLOBIN (test code = 1003) 17.5 G/DL HEMATOCRIT (test code = 1004) 49.4 % MCV (test code = 1005) 93.4 fL MCH (test code = 1006) 33.1 PG MCHC (test code = 1007) 35.4 G/DL RDW (test code = 1038) 12.8 % NEUTROPHILS (test code = 1008) 62.9 % LYMPHOCYTES (test code = 1010) 24.7 % MONOCYTES (test code = 1011) 9.9 % EOSINOPHILS (test code = 1012) 1.2 % BASOPHILS (test code = 1013) 0.5 % IMMATURE GRANULOCYTES (test 0.8 % code = 1036) NUCLEATED RBCS (test code = 0.0 /100WBC'S 1065) PLATELET COUNT (test code = 254 K/UL 1015) ABSOLUTE NEUTROPHILS (test code 4.18 K/UL = 1066) ABSOLUTE LYMPHOCYTES (test code 1.64 K/UL = 1067) ABSOLUTE MONOCYTES (test code = 0.66 K/UL 1068) ABSOLUTE EOSINOPHILS (test code 0.08 K/UL = 1040) ABSOLUTE BASOPHILS (test code = 0.03 K/UL 1069) ABS IMMATURE GRANULOCYTES (test 0.05 K/UL code = 1020) ABS NUCLEATED RBCS (test code = 0.02 K/UL 40489) CBC W/AUTO [id number] 00:00:00 Test Item Value Reference Range Interpretation Comments WBC (test code = 1001) 6.6 K/UL RBC (test code = 1002) 5.29 M/UL HEMOGLOBIN (test code = 1003) 17.5 G/DL HEMATOCRIT (test code = 1004) 49.4 % MCV (test code = 1005) 93.4 fL MCH (test code = 1006) 33.1 PG MCHC (test code = 1007) 35.4 G/DL RDW (test code = 1038) 12.8 % NEUTROPHILS (test code = 1008) 62.9 % LYMPHOCYTES (test code = 1010) 24.7 % MONOCYTES (test code = 1011) 9.9 % EOSINOPHILS (test code = 1012) 1.2 % BASOPHILS (test code = 1013) 0.5 % IMMATURE GRANULOCYTES (test 0.8 % code = 1036) NUCLEATED RBCS (test code = 0.0 /100WBC'S 1065) PLATELET COUNT (test code = 254 K/UL 1015) ABSOLUTE NEUTROPHILS (test code 4.18 K/UL = 1066) ABSOLUTE LYMPHOCYTES (test code 1.64 K/UL = 1067) ABSOLUTE MONOCYTES (test code = 0.66 K/UL 1068) ABSOLUTE EOSINOPHILS (test code 0.08 K/UL = 1040) ABSOLUTE BASOPHILS (test code = 0.03 K/UL 1069) ABS IMMATURE GRANULOCYTES (test 0.05 K/UL code = 1020) ABS NUCLEATED RBCS (test code = 0.02 K/UL 83921) HEMOGLOBIN [id number] 00:00:00 Test Item Value Reference Range Interpretation Comments HEMOGLOBIN A1c (test code = 92768) 10.5 % HEMOGLOBIN [id number] 00:00:00 Test Item Value Reference Range Interpretation Comments HEMOGLOBIN A1c (test code = 82070) 10.5 % HEMOGLOBIN [id number] 00:00:00 Test Item Value Reference Range Interpretation Comments HEMOGLOBIN A1c (test code = 31121) 10.5 % LIPID [id number] 00:00:00 Test Item Value Reference Range Interpretation Comments CHOLESTEROL (test code = 2210) 262 MG/DL TRIGLYCERIDES (test code = 2232) 148 MG/DL HDL CHOLESTEROL (test code = 2220) 60 MG/DL CALC LDL CHOL (test code = 2237) 173 MG/DL RISK RATIO LDL/HDL (test code = 2.88 RATIO 2238) LIPID [id number] 00:00:00 Test Item Value Reference Range Interpretation Comments CHOLESTEROL (test code = 2210) 262 MG/DL TRIGLYCERIDES (test code = 2232) 148 MG/DL HDL CHOLESTEROL (test code = 2220) 60 MG/DL CALC LDL CHOL (test code = 2237) 173 MG/DL RISK RATIO LDL/HDL (test code = 2.88 RATIO 2238) COMPREHENSIVE METABOLIC [id number] 00:00:00 Test Item Value Reference Range Interpretation Comments GLUCOSE (test code = 2217) 311 MG/DL BUN (test code = 2208) 15 MG/DL CREATININE (test code = 2214) 0.98 MG/DL eGFR AMER. (test code 95 ML/MIN/1.73 = 38821) eGFR NON- AMER. (test 82 ML/MIN/1.73 code = 17603) CALC BUN/CREAT (test code = 15 RATIO 2235) SODIUM (test code = 2231) 139 MEQ/L POTASSIUM (test code = 2228) 4.7 MEQ/L CHLORIDE (test code = 2215) 99 MEQ/L CARBON DIOXIDE (test code = 25 MEQ/L 2205) CALCIUM (test code = 2209) 10.1 MG/DL PROTEIN, TOTAL (test code = 7.2 G/DL 2228) ALBUMIN (test code = 2201) 4.5 G/DL CALC GLOBULIN (test code = 2.7 G/DL 2240) CALC A/G RATIO (test code = 1.7 RATIO 2234) BILIRUBIN, TOTAL (test code = 0.7 MG/DL 2206) ALKALINE PHOSPHATASE (test 93 U/L code = 2204) AST (test code = 2218) 16 U/L ALT (test code = 2219) 23 U/L COMPREHENSIVE METABOLIC [id number] 00:00:00 Test Item Value Reference Range Interpretation Comments GLUCOSE (test code = 2217) 311 MG/DL BUN (test code = 2208) 15 MG/DL CREATININE (test code = 2214) 0.98 MG/DL eGFR AMER. (test code 95 ML/MIN/1.73 = 22104) eGFR NON- AMER. (test 82 ML/MIN/1.73 code = 54132) CALC BUN/CREAT (test code = 15 RATIO 2235) SODIUM (test code = 2231) 139 MEQ/L POTASSIUM (test code = 2228) 4.7 MEQ/L CHLORIDE (test code = 2215) 99 MEQ/L CARBON DIOXIDE (test code = 25 MEQ/L 2205) CALCIUM (test code = 2209) 10.1 MG/DL PROTEIN, TOTAL (test code = 7.2 G/DL 2228) ALBUMIN (test code = 2201) 4.5 G/DL CALC GLOBULIN (test code = 2.7 G/DL 2239) CALC A/G RATIO (test code = 1.7 RATIO 2233) BILIRUBIN, TOTAL (test code = 0.7 MG/DL 2206) ALKALINE PHOSPHATASE (test 93 U/L code = 2204) AST (test code = 2218) 16 U/L ALT (test code = 2219) 23 U/L PSA, [id number] 00:00:00 Test Item Value Reference Range Interpretation Comments PSA, TOTAL (test code = 2606) 1.42 NG/ML PSA, [id number] 00:00:00 Test Item Value Reference Range Interpretation Comments PSA, TOTAL (test code = 2606) 1.42 NG/ML PSA, [id number] 00:00:00 Test Item Value Reference Range Interpretation Comments PSA, TOTAL (test code = 2606) 1.42 NG/ML CBC W/AUTO [id number] 00:00:00 Test Item Value Reference Range Interpretation Comments WBC (test code = 1001) 6.6 K/UL RBC (test code = 1002) 5.29 M/UL HEMOGLOBIN (test code = 1003) 17.5 G/DL HEMATOCRIT (test code = 1004) 49.4 % MCV (test code = 1005) 93.4 fL MCH (test code = 1006) 33.1 PG MCHC (test code = 1007) 35.4 G/DL RDW (test code = 1038) 12.8 % NEUTROPHILS (test code = 1008) 62.9 % LYMPHOCYTES (test code = 1010) 24.7 % MONOCYTES (test code = 1011) 9.9 % EOSINOPHILS (test code = 1012) 1.2 % BASOPHILS (test code = 1013) 0.5 % IMMATURE GRANULOCYTES (test 0.8 % code = 1036) NUCLEATED RBCS (test code = 0.0 /100WBC'S 1065) PLATELET COUNT (test code = 254 K/UL 1015) ABSOLUTE NEUTROPHILS (test code 4.18 K/UL = 1066) ABSOLUTE LYMPHOCYTES (test code 1.64 K/UL = 1067) ABSOLUTE MONOCYTES (test code = 0.66 K/UL 1068) ABSOLUTE EOSINOPHILS (test code 0.08 K/UL = 1040) ABSOLUTE BASOPHILS (test code = 0.03 K/UL 1069) ABS IMMATURE GRANULOCYTES (test 0.05 K/UL code = 1020) ABS NUCLEATED RBCS (test code = 0.02 K/UL 46703) CBC W/AUTO [id number] 00:00:00 Test Item Value Reference Range Interpretation Comments WBC (test code = 1001) 6.6 K/UL RBC (test code = 1002) 5.29 M/UL HEMOGLOBIN (test code = 1003) 17.5 G/DL HEMATOCRIT (test code = 1004) 49.4 % MCV (test code = 1005) 93.4 fL MCH (test code = 1006) 33.1 PG MCHC (test code = 1007) 35.4 G/DL RDW (test code = 1038) 12.8 % NEUTROPHILS (test code = 1008) 62.9 % LYMPHOCYTES (test code = 1010) 24.7 % MONOCYTES (test code = 1011) 9.9 % EOSINOPHILS (test code = 1012) 1.2 % BASOPHILS (test code = 1013) 0.5 % IMMATURE GRANULOCYTES (test 0.8 % code = 1036) NUCLEATED RBCS (test code = 0.0 /100WBC'S 1065) PLATELET COUNT (test code = 254 K/UL 1015) ABSOLUTE NEUTROPHILS (test code 4.18 K/UL = 1066) ABSOLUTE LYMPHOCYTES (test code 1.64 K/UL = 1067) ABSOLUTE MONOCYTES (test code = 0.66 K/UL 1068) ABSOLUTE EOSINOPHILS (test code 0.08 K/UL = 1040) ABSOLUTE BASOPHILS (test code = 0.03 K/UL 1069) ABS IMMATURE GRANULOCYTES (test 0.05 K/UL code = 1020) ABS NUCLEATED RBCS (test code = 0.02 K/UL 80468) HEMOGLOBIN [id number] 00:00:00 Test Item Value Reference Range Interpretation Comments HEMOGLOBIN A1c (test code = 86969) 10.5 % HEMOGLOBIN [id number] 00:00:00 Test Item Value Reference Range Interpretation Comments HEMOGLOBIN A1c (test code = 90106) 10.5 % LIPID [id number] 00:00:00 Test Item Value Reference Range Interpretation Comments CHOLESTEROL (test code = 2210) 262 MG/DL TRIGLYCERIDES (test code = 2232) 148 MG/DL HDL CHOLESTEROL (test code = 2220) 60 MG/DL CALC LDL CHOL (test code = 2237) 173 MG/DL RISK RATIO LDL/HDL (test code = 2.88 RATIO 2238) COMPREHENSIVE METABOLIC [id number] 00:00:00 Test Item Value Reference Range Interpretation Comments GLUCOSE (test code = 2217) 311 MG/DL BUN (test code = 2208) 15 MG/DL CREATININE (test code = 2214) 0.98 MG/DL eGFR AMER. (test code 95 ML/MIN/1.73 = 08180) eGFR NON- AMER. (test 82 ML/MIN/1.73 code = 77501) CALC BUN/CREAT (test code = 15 RATIO 223) SODIUM (test code = 2231) 139 MEQ/L POTASSIUM (test code = 2228) 4.7 MEQ/L CHLORIDE (test code = 2215) 99 MEQ/L CARBON DIOXIDE (test code = 25 MEQ/L 2205) CALCIUM (test code = 2209) 10.1 MG/DL PROTEIN, TOTAL (test code = 7.2 G/DL 2228) ALBUMIN (test code = 2201) 4.5 G/DL CALC GLOBULIN (test code = 2.7 G/DL 2239) CALC A/G RATIO (test code = 1.7 RATIO 2233) BILIRUBIN, TOTAL (test code = 0.7 MG/DL 2206) ALKALINE PHOSPHATASE (test 93 U/L code = 2204) AST (test code = 2218) 16 U/L ALT (test code = 2219) 23 U/L PSA, [id number] 00:00:00 Test Item Value Reference Range Interpretation Comments PSA, TOTAL (test code = 2606) 1.42 NG/ML PSA, [id number] 00:00:00 Test Item Value Reference Range Interpretation Comments PSA, TOTAL (test code = 2606) 1.42 NG/ML"
--- NOTE | 2023-05-18 11:22 | RAD REPORT ---
EXAM DESCRIPTION: [facility] Single View05/18/2023 11:12 am CLINICAL HISTORY: cva COMPARISON: No comparisons TECHNIQUE: Portable AP view of the chest. FINDINGS: Decreased inspiratory effort somewhat limits evaluation. The lungs are clear. No pneumoth orax or effusion. The cardiomediastinal contours are unremarkable. IMPRESSION: No acute cardiopulmonary process.
--- NOTE | 2023-05-18 13:49 | P.HP ---
Certification for Inpatient Patient admitted to: Observation With expected LOS: <2 Midnights Patient will require the following post-hospital care: None Practitioner: I am a practitioner with admitting privileges, knowledge of patient current condition, hospital course, and medical plan of care. Services: Services provided to patient in accordance with Admission requirements found in Title 42 Section 412.3 of the Code of Federal Regulations Patient History Date of Service: 05/18/23 Primary Care Provider: Shanthi ramirez Reason for admission: CVA History of Present Illness: 67-year-old male with history of hypertension, vhf-psrarhd-mnyxajoyx diabetes presents the emergency department chief complaint of slurred speech, facial droop. He reports around 830 last night he had a headache, he took something for the pain and went to sleep, when he woke around 2 or 3 AM he felt dizzy and when he woke up in the morning for work his coworkers noticed that he was having slurred speech around 8 AM. He was evaluated in the emergency department his labs were significant for glucose [address] head without contrast "Hypodense regions within the superior cerebellar hemispheres bilaterally larger on the right, suggestive of subacute ischemia. No evidence of intracranial hemorrhage or herniation" CTA Neck "Suspected moderate to severe stenosis at the origin of the left vertebral artery, although dense venous contrast results in artifact which somewhat limits evaluation at that level. No other significant flow abnormality of the neck vessels is identified." CTA Head No evidence of large vessel occlusion or flow-limiting stenosis. Mild multifocal luminal irregularity of the distal non dominant left vertebral artery Patient still with NIH of 3 for dysarthria, mild right-sided facial droop. He was previously having weakness, numbness/tingling of the right upper extremity but this has since resolved. He will be admitted for further evaluation management of subacute stroke, dysarthria, facial droop. - Past Medical/Surgical History -: BRMO-lkz-bzzcgrz-dependent -: Hypertension -: Cholecystectomy -: Hernia repair Psychosocial/ Personal History: Lives at home with his - Family History Father -: Heart disease - Social History Smoking Status: Current some day smoker Counseled patient to stop smoking for: less than 10 minutes Alcohol use: Yes CD- Drugs: No Caffeine use: Yes Place of Residence: Home Review of Systems 10-point ROS is otherwise unremarkable Neurological: Weakness, Change in Speech, As per HPI Physical Examination - Physical Exam General: Alert, In no apparent distress, Oriented x3 HEENT: Atraumatic, PERRLA, Mucous membr. moist/pink, EOMI, Sclerae nonicteric Neck: Supple Respiratory: Clear to auscultation bilaterally, Normal air movement Cardiovascular: Regular rate/rhythm, Normal S1 S2 Gastrointestinal: Normal bowel sounds, No tenderness Musculoskeletal: No tenderness Integumentary: No rashes Neurological: Normal gait, Normal strength at 5/5 x4 extr, Normal affect, Other (Mild right facial droop, NIH 3), Abnormal speech (Dysarthria) - Studies Laboratory Data (last 24 hrs) 05/18/23 05/18/23 05/18/23 10:40 10:40 10:40 WBC 9.10 Hgb 14.3 Hct 40.8 Plt Count 244 PT 10.8 INR 0.98 APTT 31.6 Sodium 136 Potassium 4.1 BUN 15 Creatinine 1.08 Glucose 249 H Magnesium 1.4 L Total Bilirubin 0.5 AST 10 L ALT 18 Alkaline Phosphatase 90 Assessment and Plan - Plan Assessment: Dysarthria, right-sided facial droop-suspected ischemic CVA Hypertension diabetes mellitus type 0xks-xsdkfbb-hmsylwoxg with hyperglycemia Tobacco abuse Hypomagnesemia Plan: Dysarthria, right-sided facial droop-suspected ischemic CVA Discussed CTA neck findings of moderate-severe degree of stenosis at the origin of the left vertebral artery with neurology Recommended consultation with neurosurgery/stroke team at [facility] Neurosurgery/stroke team at [facility] recommended medical management Continue with aspirin, statin, Plavix, folic acid Discussed need for tobacco cessation, good control of blood pressure MRI, echocardiogram pending. Monitor on telemetry Speech therapy, physical therapy, neurology consult in place NIH score currently 3 with dysarthria and right facial droop Hypertension Continue home medications allowing for permissive hypertension diabetes mellitus type 2fti-qgncdwe-pmsitwztn with hyperglycemia ACHS Accu-Chek, sliding scale insulin, A1c in the morning Tobacco abuse Counseling on the need for tobacco cessation especially in the setting of acute CVA Hypomagnesemia Protocol in place DVT PPX:Lovenox Code status:Full Discharge Plan: Home Plan to discharge in: 24 Hours - Advance Directives Does patient have a Living Will: No Does patient have a Durable POA for Healthcare: No - Code Status/Comfort Care Code Status Assessed: Yes (Full code) Critical Care: No Time Spent Managing Pts Care (In Minutes): 55
--- NOTE | 2023-05-18 14:22 | RAD REPORT ---
EXAM DESCRIPTION: MRI - Brain Wo Cont - 05/18/2023 2:04 pm CLINICAL HISTORY: Difficulty speaking COMPARISON: Head CT 05/18/2023 TECHNIQUE: Axial, sagittal, and coronal magnetic resonance images of the brain were obtained. FINDINGS: Mild to moderate signal within periventricular, deep and subcortical white matter probably ischemic changes secondary to small vessel disease Diffusion-weighted/ADC mapping demonstrate 4 centimeter area of abnormal signal right cerebellum exte nding into the right cerebellar vermis. Several smaller areas abnormal signal left cerebellum 3 katie meter linear signal cerebellar vermis just to the left of midline. These have the appearance of early subacute infarcts. Gradient echo sequences demonstrate areas of low signal within the right cerebellar infarct probably petechial hemorrhage The ventricles are normal caliber. No shift of midline structures An extra-axial fluid collection is not noted. Fluid within the sinuses/mastoids is not seen IMPRESSION: Bilateral cerebellar infarctions. These appear early subacute Petechial hemorrhage within the right cerebellar infarct suspected Dr Cat notified at 2:05 p.m. on 05/18/2023
[2023-05-18] MEDS ORDERED: ONDANSETRON 4 MG/2 ML VIAL IV PRN (15:41)
[2023-05-18] MEDS ORDERED: ACETAMINOPHEN 500 MG TAB PO PRN (15:41)
[2023-05-18 17:38] VITALS: O2SAT 98
[2023-05-18] MEDS: NA CHLORIDE 0.9% 1,000 ML IV SCH (17:56)
[2023-05-18] MEDS: ENOXAPARIN 40 MG/0.4 ML SQ SCH (17:56)
[2023-05-18] MEDS ORDERED: INSULIN REGULAR (HUMAN) 100 UNIT/ML SQ SCH (18:00)
[2023-05-18] MEDS ORDERED: INFLUENZA VACCINE (for 6+ mo) 0.5 ML DOSE IMVAC ONE (18:00)
[2023-05-18] MEDS ORDERED: PNEUMOCOCCAL VACCINE 0.5 ML IMVAC ONE (18:00)
[2023-05-18] MEDS: INSULIN REGULAR (HUMAN) 100 UNIT/ML SQ SCH (21:00)
[2023-05-18] MEDS ORDERED: ATORVASTATIN 40 MG TAB PO SCH (21:00)
[2023-05-19] MEDS: NA CHLORIDE 0.9% 1,000 ML IV SCH ×2 (05:01→06:43)
[2023-05-19 05:04] VITALS: TEMP 98.1
[2023-05-19 07:06] LABS: Absolute Lymphocytes (CBC) 2.6 K/uL (0.7-4.9); Hematocrit 39.2 % (39.6-49.0); Lymphocytes % 39.1 % (15.3-44.8); MCV 93.4 fL (80-100); MPV 7.8 fL (7.6-11.3); Platelets 217 thou/uL (152-406)
[2023-05-19] MEDS: INSULIN REGULAR (HUMAN) 100 UNIT/ML SQ SCH ×2 (07:30→11:30)
[2023-05-19 07:32] LABS: Magnesium 1.4 mg/dL (1.6-2.4); Potassium 3.8 mEq/L (3.5-5.1); T4,Total 9.5 ug/dL (4.5-12.1); Thyroid Stimulating Hormone 1.32 uIU/mL (0.358-3.740)
[2023-05-19] MEDS ORDERED: FOLIC ACID 1 MG TABLET PO SCH (09:00)
[2023-05-19] MEDS ORDERED: ASPIRIN EC 81 MG TAB PO SCH (09:00)
[2023-05-19] MEDS ORDERED: LOSARTAN/HCTZ 50-12.5 PO SCH (09:00)
[2023-05-19] MEDS ORDERED: ALOGLIPTIN BENZOATE 12.5 MG TABLET PO SCH (09:00)
[2023-05-19] MEDS ORDERED: PROPRANOLOL HCL 40 MG TAB PO SCH (09:00)
[2023-05-19] MEDS: ENOXAPARIN 40 MG/0.4 ML SQ SCH (09:24)
[2023-05-19 13:04] VITALS: BP 141/77
--- NOTE | 2023-05-19 13:55 | RAD REPORT ---
EXAM DESCRIPTION: CT - Head Brain Wo Cont - 05/19/2023 1:46 pm CLINICAL HISTORY: Eval hemorrhagic conversion Headache, drowsiness COMPARISON: Head angio dated 05/18/2023; Ct Stroke Brain Wo Cont dated 05/18/2023; Brain Wo Cont dated 05/18/2023 TECHNIQUE: All CT scans are performed using dose optimization technique as appropriate and may inclu de automated exposure control or mA/KV adjustment according to patient size. FINDINGS: Areas of diminished density in both superior cerebellar hemispheres compatible with subacu te infarct noted. No significant hemorrhagic conversion suspected.No areas of brain edema or evidence of midline shift. The paranasal sinuses and mastoids are clear. The calvarium is intact. IMPRESSION: Right greater than left superior cerebellar hemisphere infarcts show subacute attenuatio n pattern. There is no evidence of hemorrhagic conversion. No significant midline shift.
--- NOTE | 2023-05-19 15:22 | P.DS ---
Admission Date: 05/18/23 Discharge Date: 05/19/23 Primary Care Provider: Cayla ramirez Disposition: ROUTINE DISCHARGE Discharge Condition: GOOD Reason for Admission: CVA Brief History of Present Illness: 67-year-old male with history of hypertension, sgn-egeuqbj-gwxzxlmlb diabetes presents the emergency department chief complaint of slurred speech, facial droop. He reports around 830 last night he had a headache, he took something for the pain and went to sleep, when he woke around 2 or 3 AM he felt dizzy and when he woke up in the morning for work his coworkers noticed that he was having slurred speech around 8 AM. He was evaluated in the emergency department his labs were significant for glucose [address] head without contrast "Hypodense regions within the superior cerebellar hemispheres bilaterally larger on the right, suggestive of subacute ischemia. No evidence of intracranial hemorrhage or herniation" CTA Neck "Suspected moderate to severe stenosis at the origin of the left vertebral artery, although dense venous contrast results in artifact which somewhat limits evaluation at that level. No other significant flow abnormality of the neck vessels is identified." CTA Head No evidence of large vessel occlusion or flow-limiting stenosis. Mild multifocal luminal irregularity of the distal non dominant left vertebral artery Patient still with NIH of 3 for dysarthria, mild right-sided facial droop. He was previously having weakness, numbness/tingling of the right upper extremity but this has since resolved. He will be admitted for further evaluation management of subacute stroke, dysarthria, facial droop. Hospital Course: Problem list Bilateral ischemic cerebellar CVA Dysarthria, right sided facial droop Hypertension diabetes mellitus type [id number]-wmnesnz-jemnqkmva with hyperglycemia Tobacco abuse Hypomagnesemia Patient presented to ED with slurred speech and right facial droop, he was found to have an ischemic cerebellar stroke on MRI and CT. He was out of the window for TPA/TNK and was treated with antiplatelets, statin, folic acid. He was seen by speech therapy and it was recommended he have further outpatient speech therapy. Patient did very well with physical therapy and has not weakness in extremities or difficulty with gait. At discharge the following medications changes are recommended Increase atorvastatin from 20mg daily to 40mg daily Start taking aspirin 81mg daily start taking folic acid 1mg daily The aspirin and folic acid can be obtained over the counter but we did send prescriptions to the pharmacy for the atorvastatin, aspirin and folic acid Please follow up with your PCP in one week, Dr. Figueroa in 1-2 weeks. Vital Signs/Physical Exam: Temp Pulse Resp BP Pulse Ox 98.1 F 62 18 141/77 H 97 05/19/23 12:00 05/19/23 12:00 05/19/23 12:00 05/19/23 12:00 05/19/23 12:00 General: Alert, In no apparent distress, Oriented x3 HEENT: Atraumatic, PERRLA, EOMI Neck: Supple, JVD not distended Respiratory: Clear to auscultation bilaterally, Normal air movement Cardiovascular: Regular rate/rhythm, Normal S1 S2 Gastrointestinal: Normal bowel sounds, No tenderness Musculoskeletal: No tenderness Integumentary: No rashes Neurological: Normal gait, Normal tone, Sensation intact, Cranial nerves 3-12 intact, Other (mild right sided facial droop), Abnormal speech (Mild dysarthria) Laboratory Data at Discharge: WBC 6.60 thou/uL (4.3-10.9) 05/19/23 06:20 Hgb 13.8 g/dL (13.6-17.9) 05/19/23 06:20 Hct 39.2 % (39.6-49.0) L 05/19/23 06:20 Plt Count 217 thou/uL (152-406) 05/19/23 06:20 PT 10.8 SECONDS (9.5-12.5) 05/18/23 10:40 INR 0.98 05/18/23 10:40 APTT 31.6 SECONDS (24.3-36.9) 05/18/23 10:40 Sodium 139 mEq/L (136-145) 05/19/23 06:20 Potassium 3.8 mEq/L (3.5-5.1) 05/19/23 06:20 BUN 12 mg/dL (7-18) 05/19/23 06:20 Creatinine 0.97 mg/dL (0.70-1.30) 05/19/23 06:20 Glucose 153 mg/dL (74-106) H 05/19/23 06:20 Magnesium 1.4 mg/dL (1.6-2.4) L 05/19/23 06:20 Total Bilirubin 0.5 mg/dL (0.2-1.0) 05/18/23 10:40 AST 10 U/L (15-37) L 05/18/23 10:40 ALT 18 U/L (16-61) 05/18/23 10:40 Alkaline Phosphatase 90 U/L (45-117) 05/18/23 10:40 Triglycerides 131 mg/dL (<150) 05/19/23 06:20 Cholesterol 134 mg/dL (<200) 05/19/23 06:20 HDL Cholesterol 53 mg/dL (40-60) 05/19/23 06:20 Cholesterol/HDL Ratio 2.53 05/19/23 06:20 Home Medications: Losartan/Hydrochlorothiazide [Losartan-Hctz 50-12.5 mg Tab] 1 tab PO DAILY 05/18/23 Propranolol [Inderal*] 1 tab PO BID 05/18/23 Sitagliptin Phosphate [Januvia] 1 tab PO DAILY 05/18/23 Aspirin [Aspirin EC 81 MG] 81 mg PO DAILY #30 tab 05/19/23 Atorvastatin Calcium 40 mg PO DAILY #30 tab 05/19/23 Folic Acid 1 mg PO DAILY #30 tab 05/19/23 New Medications: Aspirin [Aspirin EC 81 MG] 81 mg PO DAILY #30 tab Atorvastatin Calcium 40 mg PO DAILY #30 tab Folic Acid 1 mg PO DAILY #30 tab Physician Discharge Instructions: Patient presented to ED with slurred speech and right facial droop, he was found to have an ischemic cerebellar stroke on MRI and CT. He was out of the window for TPA/TNK and was treated with antiplatelets, statin, folic acid. He was seen by speech therapy and it was recommended he have further outpatient speech therapy. Patient did very well with physical therapy and has not weakness in extremities or difficulty with gait. At discharge the following medications changes are recommended Increase atorvastatin from 20mg daily to 40mg daily Start taking aspirin 81mg daily start taking folic acid 1mg daily The aspirin and folic acid can be obtained over the counter but we did send prescriptions to the pharmacy for the atorvastatin, aspirin and folic acid Please follow up with your PCP in one week, Dr. Figueroa in 1-2 weeks. Diet: AHA Activity: Ad irma Followup: Donald Figueroa MD [ASSOCIATE-ACTIVE - CAN ADMIT] - 1-2 Weeks CAYLA BURR [Primary Care Provider] - 1 Week Time spent managing pt's care (in minutes): 35
[2023-05-19 20:46] VITALS: BMI 27.9
--- NOTE | 2023-05-20 08:20 | ECHO ---
HEIGHT: 5 ft 8 in WEIGHT: 184 lb 0 oz DATE OF STUDY: 05/19/[address]: Andrew Thomas NP 2-DIMENSIONAL: YES M.MODE: YES DOPPLER: YES COLOR FLOW: YES TDS: PORTABLE: YES DEFINITY: BUBBLE STUDY: DIAGNOSIS: STROKE CARDIAC HISTORY: CATHERIZATION: SURGERY: PROSTHETIC VALVE: PACEMAKER: MEASUREMENTS (cm) DIASTOLIC (NORMALS) SYSTOLIC (NORMALS) IVSd 1.0 (0.6-1.2) LA Diam 3.9 (1.9-4.0) LVEF 56% LVIDd 4.6 (3.5-5.7) LVIDs 3.2 (2.0-3.5) %FS 29% LVPWd 1.0 (0.6-1.2) Ao Diam 2.9 (2.0-3.7) 2 DIMENSIONAL ASSESSMENT: RIGHT ATRIUM: NORMAL LEFT ATRIUM: NORMAL RIGHT VENTRICLE: NORMAL LEFT VENTRICLE: NORMAL TRICUSPID VALVE: NORMAL MITRAL VALVE: NORMAL PULMONIC VALVE: NORMAL AORTIC VALVE: NORMAL PERICARDIAL EFFUSION: NONE AORTIC ROOT: NORMAL LEFT VENTRICULAR WALL MOTION: NORMAL DOPPLER/COLOR FLOW: NORMAL COMMENTS: 1. NORMAL LEFT VENTRICULAR EJECTION FRACTION 55-60% 2. NORMAL WALL MOTION 3. GRADE I DIASTOLIC DYSFUNCTION TECHNOLOGIST: RUTHY ALEMAN
== END 2023-05-19 17:55 | disposition home or self-care (01) ==
LOC: ER 10:15 → ERHOLD 13:31 → 4TH 16:28
PROVIDERS: ADMIT Hospitalist; ATTEND Hospitalist
DX: I63.9 Cerebral infarction, unspecified (principal); R29.703 NIHSS score 3; R47.1 Dysarthria and anarthria; R42 Dizziness and giddiness; R29.810 Facial weakness; I10 Essential (primary) hypertension; E11.65 Type 2 diabetes mellitus with hyperglycemia; E83.42 Hypomagnesemia; F17.210 Nicotine dependence, cigarettes, uncomplicated
CPT/HCPCS: 93005; 93306; 85025 ×2; 80048 ×2; 36415; 83735 ×2; 85610; 80061; 82565; 82947 ×5; 80076; 85730; 84436; 84443; 83036; 84484; 70450 ×2; 70496; 70498; 71045; 70551; 92523; 92610; 97116; 97161; 99285; Q9967; J1650 ×2; J7030 ×2; G0378 ×4; J1815